=== PATIENT | female | born 1970 | race Caucasian/White ===

== ENCOUNTER 2016-08-24 12:25 | Emergency (ER) | payer MEDICAID, SELFPAY ==
[~2016-08-24] VITALS: Ht 172.7 cm; Wt 81.4 kg
[2016-08-24 12:32] VITALS: BP 93/64
[2016-08-24] MEDS ORDERED: FAMOTIDINE 20 MG TABLET PO ONE (13:30)
[2016-08-24] MEDS ORDERED: PLEASE ENTER ALLERGIES MC SCH ×2 (13:30)
== END 2016-08-24 13:36 | disposition home or self-care (01) ==
LOC: ED 13:30
DX: L20.9 Atopic dermatitis, unspecified (principal)
CPT/HCPCS: 99283